=== PATIENT | female | born 1930 | race Caucasian/White ===

== ENCOUNTER → 2016-10-16 | Outpatient (CLI) | payer OTHER | LOC: FIMAGING 12:33 | PROVIDERS: ATTEND Nurse Practitioner Family | DX: M11.262 Other chondrocalcinosis, left knee (principal) ==

== ENCOUNTER 2017-06-27 19:44 | Emergency (ER) | payer OTHER ==
[2017-06-27 20:04] VITALS: PULSE 64; RESP 16; TEMP 97.7; O2SAT 98
[2017-06-27 20:06] VITALS: BP 186/103
[2017-06-27] MEDS ORDERED: TETANUS, DIPHTHERIA TOX (7YR+) 0.5 ML INJ IM ONE (20:26)
--- NOTE | 2017-06-27 20:26 | EDPHY ---
H & P Time Seen by Provider: 06/27/17 20:23 HPI/ROS: CHIEF COMPLAINT: Right hand injury HISTORY OF PRESENT ILLNESS: At 4:00 p.m. patient lost her balance and fell hitting her right hand on pine cones. She feels like is having trouble getting the bleeding stopped was also worried about foreign body. REVIEW OF SYSTEMS: No weakness or numbness distally PAST MEDICAL HISTORY: Includes arthritis, hypertension, macular degeneration General Appearance: Alert and conversant, cooperative. Patient has some radial deviation and swelling of the knuckles from her arthritis which is normal. She has a 3 mm puncture wound/laceration on the dorsum of the web space between her middle and ring fingers. Normal distal flexor and extensor function and capillary refill and sensation. Emergency Department course/MDM: Patient had local anesthesia with 0.5% bupivacaine and wound was explored I do not find a foreign body. X-ray and standard wound care. 2054: Hand x-ray personally interpreted as negative, standard wound care and discharge. Wound is nonsuturable and should heal well with secondary intention. Smoking Status: Never smoked Constitutional: Initial Vital Signs Temperature (C) 36.5 C 06/27/17 20:02 Heart Rate 64 06/27/17 20:02 Respiratory Rate 16 06/27/17 20:02 Blood Pressure 186/103 H 06/27/17 20:02 O2 Sat (%) 98 06/27/17 20:02 O2 Delivery Mode Room Air Allergies/Adverse Reactions: Sulfa (Sulfonamide Antibiotics) Allergy (Unknown, Verified 06/27/17 20:02) Home Medications: Medication Instructions Recorded Aspirin 81mg (*) 06/27/17 MDM/Departure - MDM Medications Given: Discontinued Medications Tetanus/Diphtheria Toxoids Adsorbed (Tetanus-Diphtheria Grifols) 0.5 ml IM .ONCE ONE Stop: 06/27/17 20:27 Last Admin: 06/27/17 20:53 Dose: 0.5 ml - Depart Disposition: Home, Routine, Self-Care Clinical Impression: Hand laceration Qualifiers: Encounter type: initial encounter Foreign body presence: without foreign body Laterality: right Qualified Code(s): S61.411A - Laceration without foreign body of right hand, initial encounter Condition: Good Instructions: Acute Wounds (ED) Referrals: Jim Ireland MD [Primary Care Provider] - As per Instructions
== END 2017-06-27 21:12 | disposition home or self-care (01) ==
DX: S61.411A Laceration without foreign body of right hand, initial encounter (principal); Z23 Encounter for immunization; W45.8XXA Other foreign body or object entering through skin, initial encounter

== ENCOUNTER 2017-07-03 09:17 | Inpatient (IN) | payer OTHER ==
[2017-07-03] MEDS ORDERED: NS 500 ML IV ONE (09:27)
--- NOTE | 2017-07-03 09:27 | EDPHY ---
H & P HPI/ROS: CHIEF COMPLAINT: Altered mental status HISTORY OF PRESENT ILLNESS: The patient is an 82-year-old female who presents to the emergency department with mild change in mental status. EMS was called by the patient's neighbor. Per report, the patient fell last week injuring her right hand. She was seen in the emergency department and discharged home. Today the neighbor noted the hand is slightly more red than normal. Patient also seems mildly confused. Per EMS the patient was answering questions appropriately. Her glucose was normal. The patient denies any complaints except for right hand pain. Her hand pain is moderate. It is worse to touch. She has no chest pain or shortness of breath. No abdominal pain, nausea, vomiting or diarrhea. No headache. No weakness or numbness. No dysuria or frequency. No fevers or chills. EMS also reports the patient has not eaten for 48 hr. The patient states that she has not had an appetite. She has not checked her glucose at home. REVIEW OF SYSTEMS: My complete review of systems is negative except as mentioned in the HPI. Past Medical/Surgical History: Includes urinary tract infection, hypertension, goiter, osteoarthritis, osteoporosis, pyelonephritis Social history: Patient lives at home alone. Smoking Status: Never smoked Physical Exam: Vitals noted GENERAL: No acute distress, alert. HEENT: Eyes normal to inspection, normal pharynx, no signs of dehydration. NECK: No thyromegaly, no lymphadenopathy, supple. RESPIRATORY: Clear to auscultation bilaterally, no rales, rhonchi or wheezing. CVS: Regular rate and rhythm, no rubs, murmurs, or gallops. ABDOMEN: Soft, nontender, nondistended, no organomegaly. BACK: Normal to inspection, no CVA tenderness. SKIN: Normal color, no rash, warm, dry. No pallor. EXTREMITIES: No pedal edema, no calf tenderness, no Homans sign or cords, no joint swelling. The patient's right hand is mildly swollen. There is mild erythema over the dorsal aspect of her hand under the 3rd digit. There is no streaking up the arm. No significant swelling of the fingers. Neurovascular intact distally. NEURO/PSYCH: Alert and oriented x3, normal mood and affect, normal motor sensory exam. No obvious cranial nerve deficit. Constitutional: Initial Vital Signs Temperature (C) 37.2 C 07/03/17 09:25 Heart Rate 85 07/03/17 09:25 Respiratory Rate 18 07/03/17 09:25 O2 Sat (%) 94 07/03/17 09:25 O2 Delivery Mode Room Air Allergies/Adverse Reactions: Sulfa (Sulfonamide Antibiotics) Allergy (Unknown, Verified 06/27/17 20:02) morphine Allergy (Verified 07/03/17 11:11) Hallucinations Home Medications: Medication Instructions Recorded Aspirin [Aspirin 81mg (*)] 81 mg PO DAILY 07/03/17 Cholecalciferol Vit D3 [Vitamin D3 2,000 units PO EVERY OTHER DAY 07/03/17 (*)] traMADol [Ultram 50 mg (*)] 50 mg PO Q6H PRN 07/03/17 Medical Decision Making - Diagnostics Imaging Results: Imaging Impressions Hand X-Ray 07/03/17 09:29 Impression: Persistent soft tissue swelling. No evidence for osteomyelitis. ED Course/Re-evaluation: In the emergency department I reviewed the patient's previous medical record. A repeat x-ray of the right hand was ordered due to the swelling. Laboratory studies were ordered. The patient seems answer my questions appropriately. However, based on the report by the paramedics the patient's neighbor did not feel she was at her baseline. EKG shows normal sinus rhythm, [normal rate, normal axis, normal intervals]. LVH. There are [no ST or T-wave abnormalities]. The patient's troponin was minimally elevated at 0.078. Patient's creatinine was 1.2. Rest of her CBC was unremarkable. I am awaiting urine results. There was suggestion that the patient could be suffering from a urinary tract infection by EMS in the care provider. Because of the patient's redness in her hand and stable above, the patient was given Rocephin 1 g IV. I discussed the case with the hospitalist service. The patient will be admitted for further observation and rule out. The patient had positive white cells in her urine. Rocephin will cover for possible UTI. Differential Diagnosis: My differential includes but is not limited to urinary tract infection, pyelonephritis, electrolyte abnormality, sugar abnormality, bacteremia, sepsis, cellulitis, hand infection, abscess, foreign body, fracture, ACS - Data Points Laboratory Results: Laboratory Results 07/03/17 09:20 07/03/17 09:20 07/03/17 07/03/1707/03/17 09:55 09:20 09:20 WBC RBC Hgb Hct MCV MCH MCHC RDW Plt Count MPV Neut % (Auto) Lymph % (Auto) [place] % (Auto) Eos % (Auto) Baso % (Auto) Nucleat RBC Rel Count Absolute Neuts (auto) Absolute Lymphs (auto) Absolute Monos (auto) Absolute Eos (auto) Absolute Basos (auto) Absolute Nucleated RBC Immature Gran % Immature Gran # PT 14.7 SEC SEC (12.0-15.0) INR 1.13 (0.83-1.16) APTT 28.6 SEC SEC (23.0-38.0) VBG Lactic Acid 1.4 mmol/L mmol/L (0.7-2.1) Sodium Potassium Chloride Carbon Dioxide Anion Gap BUN Creatinine Estimated GFR Glucose Calcium Magnesium 2.1 mg/dL mg/dL (1.6-2.3) Total Bilirubin Conjugated Bilirubin Unconjugated Bilirubin AST ALT Alkaline Phosphatase Troponin I Total Protein Albumin 07/03/17 07/03/17 09:20 09:20 WBC 10.97 10^3/uL H 10^3/uL (3.80-9.50) RBC 4.85 10^6/uL 10^6/uL (4.18-5.33) Hgb 15.9 g/dL g/dL (12.6-16.3) Hct 47.3 % H % (38.0-47.0) MCV 97.5 fL fL (81.5-99.8) MCH 32.8 pg pg (27.9-34.1) MCHC 33.6 g/dL g/dL (32.4-36.7) RDW 13.2 % % (11.5-15.2) Plt Count 171 10^3/uL 10^3/uL (150-400) MPV 11.9 fL H fL (8.7-11.7) Neut % (Auto) 78.4 % H % (39.3-74.2) Lymph % (Auto) 9.3 % L % (15.0-45.0) [place] % (Auto) 11.4 % % (4.5-13.0) Eos % (Auto) 0.1 % L % (0.6-7.6) Baso % (Auto) 0.4 % % (0.3-1.7) Nucleat RBC Rel Count 0.0 % % (0.0-0.2) Absolute Neuts (auto) 8.61 10^3/uL H 10^3/uL (1.70-6.50) Absolute Lymphs (auto) 1.02 10^3/uL 10^3/uL (1.00-3.00) Absolute Monos (auto) 1.25 10^3/uL H 10^3/uL (0.30-0.80) Absolute Eos (auto) 0.01 10^3/uL L 10^3/uL (0.03-0.40) Absolute Basos (auto) 0.04 10^3/uL 10^3/uL (0.02-0.10) Absolute Nucleated RBC 0.00 10^3/uL 10^3/uL (0-0.01) Immature Gran % 0.4 % % (0.0-1.1) Immature Gran # 0.04 10^3/uL 10^3/uL (0.00-0.10) PT INR APTT VBG Lactic Acid Sodium 143 mEq/L mEq/L (134-144) Potassium 3.9 mEq/L mEq/L (3.5-5.2) Chloride 104 mEq/L mEq/L (97-110) Carbon Dioxide 21 mEq/l L mEq/l (22-31) Anion Gap 18 mEq/L H mEq/L (8-16) BUN 27 mg/dL H mg/dL (7-23) Creatinine 1.2 mg/dL H mg/dL (0.6-1.0) Estimated GFR 42 Glucose 104 mg/dL H mg/dL (70-100) Calcium 10.5 mg/dL H mg/dL (8.5-10.4) Magnesium Total Bilirubin 0.8 mg/dL mg/dL (0.1-1.4) Conjugated Bilirubin 0.2 mg/dL mg/dL (0.0-0.5) Unconjugated Bilirubin 0.6 mg/dL mg/dL (0.0-1.1) AST 26 IU/L IU/L (14-46) ALT 27 IU/L IU/L (9-52) Alkaline Phosphatase 99 IU/L IU/L (38-126) Troponin I 0.078 ng/mL H ng/mL (0.000-0.034) Total Protein 6.7 g/dL g/dL (6.3-8.2) Albumin 3.9 g/dL g/dL (3.5-5.0) Medications Given: Discontinued Medications Sodium Chloride (Ns) 500 mls @ 0 mls/hr IV EDNOW ONE; Wide Open PRN Reason: Protocol Stop: 07/03/17 09:28 Last Admin: 07/03/17 09:59 Dose: 500 mls Ceftriaxone Sodium/Dextrose (Rocephin 1 Gm (Premix)) 50 mls @ 100 mls/hr IV EDNOW ONE PRN Reason: Protocol Stop: 07/03/17 10:36 Last Admin: 07/03/17 11:05 Dose: 50 mls Departure - Departure Disposition: [facility] Inpatient Acute Clinical Impression: Right hand pain, Elevated troponin Urinary tract infection Qualifiers: Urinary tract infection type: acute cystitis Hematuria presence: without hematuria Qualified Code(s): N30.00 - Acute cystitis without hematuria Condition: Good
[2017-07-03 09:34] LABS: % IMMATURE GRANULYOCYTES 0.4 % (0.0-1.1); ABSOLUTE IMMATURE GRANULOCYTES 0.04 10^3/uL (0.00-0.10); ADD DIFF? NO; ADD MORPH? NO; ADD SCAN? NO; ATYPICAL LYMPHOCYTE FLAG 10 (0-99); FRAGMENT RBC FLAG 0 (0-99); HEMATOCRIT 47.3 % (38.0-47.0); HEMOGLOBIN 15.9 g/dL (12.6-16.3); LEFT SHIFT FLG 10 (0-99); LIPEMIA HEMOLYSIS FLAG 80 (0-99); MEAN CELL HEMOGLOBIN 32.8 pg (27.9-34.1); MEAN CELL HEMOGLOBIN CONCENTR. 33.6 g/dL (32.4-36.7); MEAN CELL VOLUME 97.5 fL (81.5-99.8); MEAN PLATELET VOLUME 11.9 fL (8.7-11.7); PLATELET CLUMPS FLAG 0 (0-99); PLATELET COUNT 171 10^3/uL (150-400); RED BLOOD CELL COUNT 4.85 10^6/uL (4.18-5.33); RED CELL DISTRIBUTION WIDTH 13.2 % (11.5-15.2)
[2017-07-03 09:48] LABS: INR 1.13 (0.83-1.16); PROTIME(PATIENT) 14.7 SEC (12.0-15.0)
[2017-07-03 09:49] LABS: APTT 28.6 SEC (23.0-38.0)
[2017-07-03 09:50] LABS: ALANINE AMINOTRANSFERASE 27 IU/L (9-52); ALBUMIN 3.9 g/dL (3.5-5.0); ALKALINE PHOSPHATASE 99 IU/L (38-126); ANION GAP 18 mEq/L (8-16); ASPARTATE AMINOTRANSFERASE 26 IU/L (14-46); BILIRUBIN,TOTAL 0.8 mg/dL (0.1-1.4); BILIRUBIN-CONJUGATED 0.2 mg/dL (0.0-0.5); BILIRUBIN-UNCONJUGATED 0.6 mg/dL (0.0-1.1); CALCIUM 10.5 mg/dL (8.5-10.4); CARBON DIOXIDE 21 mEq/l (22-31); CHLORIDE 104 mEq/L (97-110); CREATININE 1.2 mg/dL (0.6-1.0); GLOMERULAR FILTRATION RATE 42; GLUCOSE 104 mg/dL (70-100); POTASSIUM 3.9 mEq/L (3.5-5.2); SODIUM 143 mEq/L (134-144); TOTAL PROTEIN 6.7 g/dL (6.3-8.2)
[2017-07-03 10:00] LABS: TROPONIN I 0.078 ng/mL (0.000-0.034)
--- NOTE | 2017-07-03 10:00 | CPEKG ---
Heart Rate: 73 RR Interval: 822 P-R Interval: 164 QRSD Interval: 88 QT Interval: 396 QTC Interval: 437 P Krebs: 27 QRS Krebs: -27 T Wave Krebs: -10 EKG Severity - ABNORMAL ECG - EKG Impression: SINUS RHYTHM EKG Impression: LEFT VENTRICULAR HYPERTROPHY EKG Impression: BORDERLINE T ABNORMALITIES, INFERIOR LEADS EKG Impression: LEFTWARD AXIS Electronically Signed By: Brendon Stephens 04-Jul-2017 20:48:21
[2017-07-03] MEDS ORDERED: ONDANSETRON DISINTEGRATING 4 MG TAB PO PRN (11:02)
[2017-07-03] MEDS ORDERED: ONDANSETRON 4 MG/2 ML VIAL IVP PRN (11:02)
[2017-07-03] MEDS ORDERED: ACETAMINOPHEN 325 MG TAB PO PRN (11:02)
[2017-07-03 11:04] LABS: COLOR YELLOW; LEUKOCYTE ESTERASE,URINE 1+ (NEGATIVE); NITRITE,URINE NEGATIVE (NEGATIVE)
[2017-07-03] MEDS ORDERED: NS 1,000 ML IV SCH (11:15)
[2017-07-03 11:21] LABS: MUCUS TRACE /lpf (NONE-1+); WBC,URINE 25-50 /hpf (0-3); YEAST PRESENT /hpf (NONE SEEN)
[2017-07-03 11:22] LABS: RBC,URINE NONE SEEN /hpf (0-3)
--- NOTE | 2017-07-03 13:43 | PDGENHP ---
History and Physical - Chief Complaint malaise, fatigue - History of Present Illness The patient is an 82-year-old female who had a right hand laceration recently which was repaired. Over the past day or so she has noticed swelling, redness, and has felt malaise. Her neighbor today found her confused [facility] Right Hand XR was personally reviewed and c/w soft tissue swelling. NO e/o OM EKG personally reviewed showed LVH and inverted Twaves in leads II and III Trop was at an indeterminate level She denies any fever, CP, or SOB. BP is appropriate. She also c/o of frequent urination. No dysuria Past Medical/Surgical History: urinary tract infection, hypertension, goiter, osteoarthritis, osteoporosis, pyelonephritis, right hand laceraton Social history: Patient lives at home alone. occasional ETOH. no tobacco. no illicits FMhx: NC Labs: Cr is 1.2 WBC is 11 History Information - Allergies/Home Medication List Allergies/Adverse Reactions: Sulfa (Sulfonamide Antibiotics) Allergy (Unknown, Verified 06/27/17 20:02) morphine Allergy (Verified 07/03/17 11:11) Hallucinations Home Medications: Aspirin [Aspirin 81mg (*)] 81 mg PO DAILY 07/03/17 [Last Taken 07/02/17] Cholecalciferol Vit D3 [Vitamin D3 (*)] 2,000 units PO EVERY OTHER DAY 07/03/17 [Last Taken 06/29/17] traMADol [Ultram 50 mg (*)] 50 mg PO Q6H PRN 07/03/17 [Last Taken 07/02/17] I have personally reviewed and updated: medical history, social history, surgical history - Social History Smoking Status: Never smoked Review of Systems Review of Systems: ROS: 10pt was reviewed & negative except for what was stated in HPI & below Physical Exam Physical Exam: Temp Pulse Resp BP Pulse Ox 37.2 C 76 20 182/83 H 91 L 07/03/17 09:25 07/03/17 13:17 07/03/17 13:17 07/03/17 13:17 07/03/17 13:17 Constitutional: no apparent distress Eyes: PERRL, EOMI Ears, Nose, Mouth, Throat: moist mucous membranes, hearing normal Cardiovascular: regular rate and rhythym, No JVD, No edema Respiratory: no respiratory distress, no rales or rhonchi, clear to auscultation Gastrointestinal: normoactive bowel sounds, soft, non-tender abdomen Genitourinary: no bladder fullness Skin: warm Neurologic: AAOx3 Psychiatric: interacting appropriately, not anxious, not encephalopathic, thought process linear Lymph, Heme, Immunologic: No petechiae Lab Data & Imaging Review 07/03/17 09:20 07/03/17 09:20 WBC 10.97 10^3/uL (3.80-9.50) H 07/03/17 09:20 RBC 4.85 10^6/uL (4.18-5.33) 07/03/17 09:20 Hgb 15.9 g/dL (12.6-16.3) 07/03/17 09:20 Hct 47.3 % (38.0-47.0) H 07/03/17 09:20 MCV 97.5 fL (81.5-99.8) 07/03/17 09:20 MCH 32.8 pg (27.9-34.1) 07/03/17 09:20 MCHC 33.6 g/dL (32.4-36.7) 07/03/17 09:20 RDW 13.2 % (11.5-15.2) 07/03/17 09:20 Plt Count 171 10^3/uL (150-400) 07/03/17 09:20 MPV 11.9 fL (8.7-11.7) H 07/03/17 09:20 Neut % (Auto) 78.4 % (39.3-74.2) H 07/03/17 09:20 Lymph % (Auto) 9.3 % (15.0-45.0) L 07/03/17 09:20 [place] % (Auto) 11.4 % (4.5-13.0) 07/03/17 09:20 Eos % (Auto) 0.1 % (0.6-7.6) L 07/03/17 09:20 Baso % (Auto) 0.4 % (0.3-1.7) 07/03/17 09:20 Nucleat RBC Rel Count 0.0 % (0.0-0.2) 07/03/17 09:20 Absolute Neuts (auto) 8.61 10^3/uL (1.70-6.50) H 07/03/17 09:20 Absolute Lymphs (auto) 1.02 10^3/uL (1.00-3.00) 07/03/17 09:20 Absolute Monos (auto) 1.25 10^3/uL (0.30-0.80) H 07/03/17 09:20 Absolute Eos (auto) 0.01 10^3/uL (0.03-0.40) L 07/03/17 09:20 Absolute Basos (auto) 0.04 10^3/uL (0.02-0.10) 07/03/17 09:20 Absolute Nucleated RBC 0.00 10^3/uL (0-0.01) 07/03/17 09:20 Immature Gran % 0.4 % (0.0-1.1) 07/03/17 09:20 Immature Gran # 0.04 10^3/uL (0.00-0.10) 07/03/17 09:20 PT 14.7 SEC (12.0-15.0) 07/03/17 09:20 INR 1.13 (0.83-1.16) 07/03/17 09:20 APTT 28.6 SEC (23.0-38.0) 07/03/17 09:20 VBG Lactic Acid 1.4 mmol/L (0.7-2.1) 07/03/17 09:55 Sodium 143 mEq/L (134-144) 07/03/17 09:20 Potassium 3.9 mEq/L (3.5-5.2) 07/03/17 09:20 Chloride 104 mEq/L (97-110) 07/03/17 09:20 Carbon Dioxide 21 mEq/l (22-31) L 07/03/17 09:20 Anion Gap 18 mEq/L (8-16) H 07/03/17 09:20 BUN 27 mg/dL (7-23) H 07/03/17 09:20 Creatinine 1.2 mg/dL (0.6-1.0) H 07/03/17 09:20 Estimated GFR 42 07/03/17 09:20 Glucose 104 mg/dL (70-100) H 07/03/17 09:20 Calcium 10.5 mg/dL (8.5-10.4) H 07/03/17 09:20 Magnesium 2.1 mg/dL (1.6-2.3) 07/03/17 09:20 Total Bilirubin 0.8 mg/dL (0.1-1.4) 07/03/17 09:20 Conjugated Bilirubin 0.2 mg/dL (0.0-0.5) 07/03/17 09:20 Unconjugated Bilirubin 0.6 mg/dL (0.0-1.1) 07/03/17 09:20 AST 26 IU/L (14-46) 07/03/17 09:20 ALT 27 IU/L (9-52) 07/03/17 09:20 Alkaline Phosphatase 99 IU/L (38-126) 07/03/17 09:20 Troponin I 0.078 ng/mL (0.000-0.034) H 07/03/17 09:20 Total Protein 6.7 g/dL (6.3-8.2) 07/03/17 09:20 Albumin 3.9 g/dL (3.5-5.0) 07/03/17 09:20 Urine Color YELLOW 07/03/17 10:51 Urine Appearance HAZY 07/03/17 10:51 Urine pH 5.0 (5.0-7.5) 07/03/17 10:51 Ur Specific Lopez 1.017 (1.002-1.030) 07/03/17 10:51 Urine Protein NEGATIVE (NEGATIVE) 07/03/17 10:51 Urine Ketones 1+ (NEGATIVE) H 07/03/17 10:51 Urine Blood NEGATIVE (NEGATIVE) 07/03/17 10:51 Urine Nitrate NEGATIVE (NEGATIVE) 07/03/17 10:51 Urine Bilirubin NEGATIVE (NEGATIVE) 07/03/17 10:51 Urine Urobilinogen NEGATIVE EU (0.2-1.0) 07/03/17 10:51 Ur Leukocyte Esterase 1+ (NEGATIVE) H 07/03/17 10:51 Urine RBC NONE SEEN /hpf (0-3) 07/03/17 10:51 Urine WBC 25-50 /hpf (0-3) H 07/03/17 10:51 Ur Epithelial Cells TRACE /lpf (NONE-1+) 07/03/17 10:51 Urine Mucus TRACE /lpf (NONE-1+) 07/03/17 10:51 Urine Yeast PRESENT /hpf (NONE SEEN) 07/03/17 10:51 Urine Glucose NEGATIVE (NEGATIVE) 07/03/17 10:51 Assessment & Plan Assessment: #Right hand cellulitis #ISABELLA #Dehydration #HTN, not medicated at home #Acute Encephalopathy, resolved #Indeterminate troponin, no chest pain #Acute Cystitis #Weakness and deconditioning Plan: -Admit observation -IVF -Rocephin -serial trops, EKG, TTE -IVF -PT/OT -Hydralazine PRN -DNR (confirmed today by me)
--- NOTE | 2017-07-03 14:18 | ECHO ---
[email or web address] [address] Main: [phone] Fax: Transthoracic Echocardiogram Name: MERYL AUCNA MR#: [id number] Study Date: 07/03/2017 Study Time: 12:02 PM Date of : 1930 Age: 87 year(s) Height: 165.1 cm (65 in.) Weight: 61.24 kg (135 lb.) BSA: 1.67 m2 Gender: Female Examination: Echo Indication: Indeterminate troponin Image Quality: Contrast: Requested by: Luis Smith BP: 184 mmHg/87 mmHg Heart Rate: Rhythm: Indication: Indeterminate troponin Procedure Staff Hand Alterations Seamstress: Tabitha Schuler Reading Physician: Ad Valencia Requesting Provider: Conclusions: Normal size left ventricle. Normal global systolic LV function. The ejection fraction is estimated to be 65-70 %. No regional wall motion abnormality. Diastolic dysfunction is indeterminate.. Normal size right ventricle. The left atrium is normal in size. The right atrium is normal in size. Moderate calcification of the posterior mitral annulus.. The aortic valve is normal in appearance and function. AV max PG is 21mmHG. AV mean PG is 11mmHG.. The tricuspid valve is normal in appearance and function. The pulmonic valve is normal in appearance and function. Measurements: Chambers Valvular Assessment AV/MV Valvular Assessment TV/PV Normal Normal Normal Name Value Range Name Value Range Name Value Range Ao Dana (MM): 3.2 cm (2.2 cm-3.7 AV Vmax: 2.24 m/s (1 m/s-1.7 cm) m/s) IVSd (2D): 1.0 cm (0.6 cm-1.1 AV maxP mmHg ( - ) cm) AV meanP mmHg ( - ) LVDd (2D): 4.5 cm (3.9 cm-5.3 LVOT Vmax: 1.35 m/s (0.7 m/s-1.1 cm) m/s) LVPWd (2D): 0.8 cm ( - ) THOMAS (Vmax): 1.7 cm2 ( - ) LVOTd 1.9 cm 1.9 cm mm THOMAS (VTI): 2.1 cm ( - ) EF Range: 65-70 % MV E Vmax: 0.84 m/s ( - ) MV A Vmax: 0.96 m/s ( - ) MV E/A: 0.88 ( - ) Patient: MERYL ACUNA Study Date: 07/03/2017 Page 1 of 2 12:02 PM Continued Measurements: Chambers Valvular Assessment AV/MV Name Value Name Value LADs: 3.8 cm MV E/E' Septal: 20.60 LADs Lon.8 cm MV E/E' Lateral: 17.60 LA Area: 19.1 cm2 Findings: Left Ventricle: Normal size left ventricle. Normal global systolic LV function. The ejection fraction is estimated to be 65-70 %. No regional wall motion abnormality. Diastolic dysfunction is indeterminate.. Right Ventricle: Normal size right ventricle. Left Atrium: The left atrium is normal in size. Right Atrium: The right atrium is normal in size. Mitral Valve: Moderate calcification of the posterior mitral annulus.. Aortic Valve: The aortic valve is normal in appearance and function. AV max PG is 21mmHG. AV mean PG is 11mmHG.. Tricuspid Valve: The tricuspid valve is normal in appearance and function. Pulmonic Valve: The pulmonic valve is normal in appearance and function. Trivial pulmonic valve regurgitation. Aorta: The aorta is normal. Pericardium: No pericardial effusion. There is pericardial fat. (No Signature Object) Patient: MERYL ACUNA Study Date: 07/03/2017 Page 2 of 2 12:02 PM [id number]
[2017-07-03] MEDS: traMADol 50 MG TAB PO PRN (17:15)
--- NOTE | 2017-07-03 18:33 | SOAPPROG ---
SOAP Progress Note Assessment/Plan: Assessment:Hand cellulitis Plan:IV Abx, Elevation. If no imporvement in 36 hours in IV abx will get MRI to eval for abscess. 07/03/17 18:32 Subjective: Reviewed case and consultation note dictated by Tressa LIMA. Objective: Vital Signs Temp Pulse Resp BP Pulse Ox 36.4 C 76 21 H 147/78 H 90 L 07/03/17 16:00 07/03/17 16:00 07/03/17 16:00 07/03/17 16:00 07/03/17 16:00 07/02/17 07/03/17 07/04/17 05:59 05:59 05:59 Intake Total 350 Balance 350 PT 14.7 SEC (12.0-15.0) 07/03/17 09:20 INR 1.13 (0.83-1.16) 07/03/17 09:20 Markedly swollen right hand with preserved digital motion c/w cellulitis. ICD10 Worksheet Patient Problems: Problems Problem Status Onset Elevated troponin Acute Right hand pain Acute Urinary tract infection Acute
--- NOTE | 2017-07-03 21:41 | GCON ---
[f rep st] CONSULTATION CHIEF COMPLAINT: Right hand pain, swelling, and redness. HISTORY OF PRESENT ILLNESS: The patient is an 87-year-old right-hand dominant female who presents to the emergency room today with right hand swelling, pain, and redness. She states that last week, she fell, injuring her right hand, getting a small laceration between the middle and ring fingers at the metacarpophalangeal joint. She was seen at the ER and discharged home. She states that over the last couple days, she has noticed increased swelling and pain in the hand. She does report that the hand was more painful and swollen yesterday. She denies any fever or chills. She denies any nausea, vomiting, headache, or diarrhea. She denies any other orthopedic complaints. PAST MEDICAL HISTORY: Hypertension, goiter, osteoarthritis, osteoporosis, pyelonephritis, urinary tract infection. PAST SURGICAL HISTORY: None. MEDICATIONS: Aspirin, vitamin D3, tramadol. ALLERGIES: Sulfa and morphine. FAMILY HISTORY: Noncontributory. REVIEW OF SYSTEMS: 10-point review of systems negative for any other history, complaints, or concerns. PHYSICAL EXAMINATION: GENERAL: Pleasant, NAD. HEENT: NC/AT, EOMI, PERRLA. Ears and nares patent without discharge. Oropharynx clear. NECK: Nontender to palpation, full range of motion. MUSCULOSKELETAL: Right hand, there is swelling and redness throughout the dorsum of her right hand extending into her forearm. There is tenderness to palpation over the dorsum of her hand. She has normal sensation to light touch in the right upper extremity. She is able to move all 5 fingers, which does cause discomfort. Distal pulse present in the right upper extremity. SKIN: Warm, dry, and intact. NEUROLOGIC: Nonfocal. No deficits noted. PSYCHIATRIC: Alert and oriented x3. Appropriate mood and affect. RADIOGRAPHS: X-rays of the right hand were taken and reviewed and show persistent soft tissue swelling. No evidence of osteomyelitis or fracture. IMPRESSION: Right hand cellulitis. PLAN: The patient was seen and examined and reviewed with Dr. Montanez. At this time, we will continue with conservative treatment, including IV antibiotics per the hospitalist. She should continue with rest, ice, and elevation. Activities to her tolerance. If her symptoms are not improved in 36 hours, then we will consider ordering MRI of the right hand. All questions were answered to the patient's satisfaction. /[id number]/MODL MTDD
[2017-07-03] MEDS: hydrALAZINE 20 MG/ML VIAL IVP PRN (22:53)
[2017-07-04 04:14] LABS: % IMMATURE GRANULYOCYTES 0.3 % (0.0-1.1); ABSOLUTE IMMATURE GRANULOCYTES 0.03 10^3/uL (0.00-0.10); ADD DIFF? NO; ADD MORPH? NO; ADD SCAN? NO; ATYPICAL LYMPHOCYTE FLAG 10 (0-99); FRAGMENT RBC FLAG 0 (0-99); HEMATOCRIT 37.2 % (38.0-47.0); HEMOGLOBIN 12.5 g/dL (12.6-16.3); LEFT SHIFT FLG 0 (0-99); LIPEMIA HEMOLYSIS FLAG 80 (0-99); MEAN CELL HEMOGLOBIN 32.4 pg (27.9-34.1); MEAN CELL HEMOGLOBIN CONCENTR. 33.6 g/dL (32.4-36.7); MEAN CELL VOLUME 96.4 fL (81.5-99.8); MEAN PLATELET VOLUME 12.2 fL (8.7-11.7); PLATELET CLUMPS FLAG 0 (0-99); PLATELET COUNT 148 10^3/uL (150-400); RED BLOOD CELL COUNT 3.86 10^6/uL (4.18-5.33); RED CELL DISTRIBUTION WIDTH 13.3 % (11.5-15.2)
[2017-07-04 04:31] LABS: ANION GAP 8 mEq/L (8-16); CALCIUM 9.4 mg/dL (8.5-10.4); CARBON DIOXIDE 21 mEq/l (22-31); CHLORIDE 110 mEq/L (97-110); GLOMERULAR FILTRATION RATE 52; GLUCOSE 100 mg/dL (70-100); POTASSIUM 3.9 mEq/L (3.5-5.2); SODIUM 139 mEq/L (134-144)
[2017-07-04 04:50] LABS: C-REACTIVE PROTEIN 149.9 mg/L (<10.0)
[2017-07-04] MEDS: hydrALAZINE 20 MG/ML VIAL IVP PRN (05:57)
--- NOTE | 2017-07-04 06:52 | SOAPPROG ---
SOAP Progress Note Assessment/Plan: Assessment/Plan: R hand cellulitis -Cont activities as tolerated -Cont IV abx as ordered, blood cultures resulted, + strep pneumo, consider ID consult -Cont current pain management -Encourage ice/elevation of RUE -If no improvement in 24hrs, will order MRI for eval of abscess 07/04/17 06:50 Subjective: Pt seen at bedside. She notes that she is tired, and that her hand is slightly more painful that yesterday, but notes "it isn't that bad, I can tolerate it" in regards to the pain. She states that she is unsure if the redness in her hand is improving, but feels like "it might be." She denies any monterroso, cp, f/c/n/v , abd pain, post calf pain or new onset n/t. She also denies any additional joint pain at this time. We have discussed the care plan today. The pt has no additional concerns or complaints at this time. Objective: Vital Signs Temp Pulse Resp BP Pulse Ox 36.8 C 70 17 173/77 H 92 07/04/17 04:00 07/04/17 04:00 07/04/17 04:00 07/04/17 04:00 07/04/17 04:00 Laboratory Results 07/04/17 03:18 07/04/17 03:18 07/03/17 07/04/17 07/05/17 05:59 05:59 05:59 Intake Total 550 Balance 550 PT 14.7 SEC (12.0-15.0) 07/03/17 09:20 INR 1.13 (0.83-1.16) 07/03/17 09:20 Pt seen at bedside, awoken for exam. VSS, afebrile. NAD. Exam of the RUE reveals swelling and erythema on the dorsum of the hand, extending into the fingers, and proximally just past the wrist. Forearm compartments are supple. Pt has intact motion of all 5 digits. Mild calor is noted over dorsum of the hand (possibly improved since yesterday based on review of note). Elbow exam in benign. Pt is intact to light touch sensation distally. Radial and ulnar pulses are intact. Exam of the BLE reveals intact SCDs. Post calves are NTTP, no palpable vascular cords, neg Vince's bilat. Pt moves legs well. DNVI BLE. ICD10 Worksheet Patient Problems: Problems Problem Status Onset Elevated troponin Acute Right hand pain Acute Urinary tract infection Acute
[2017-07-04] MEDS: traMADol 50 MG TAB PO PRN (07:10)
--- NOTE | 2017-07-04 08:58 | CPEKG ---
Heart Rate: 72 RR Interval: 833 P-R Interval: 156 QRSD Interval: 90 QT Interval: 312 QTC Interval: 342 P Clarinda: 40 QRS Clarinda: -20 T Wave Clarinda: 138 EKG Severity - ABNORMAL ECG - EKG Impression: SINUS RHYTHM EKG Impression: VENTRICULAR TRIGEMINY EKG Impression: BORDERLINE LEFT AXIS DEVIATION EKG Impression: NONSPECIFIC T ABNORMALITIES, ANT-LAT LEADS Electronically Signed By: Brendon Stephens 04-Jul-2017 20:46:40
[2017-07-04] MEDS: ASPIRIN 81 MG CHEWABLE TAB PO SCH (09:49)
--- NOTE | 2017-07-04 14:35 | HOSPPROG ---
Hospitalist Progress Note Assessment/Plan: 87 yo female with right hand cellulitis -clinically improving -BCX: Strep Pneumo -CRP improving -TTE preserved LVEF, no wall abnormalities #Right hand cellulitis #Strep Bacteremia #ISABELLA, resolved with IVF #Dehydration, resolved #HTN, not medicated at home #Acute Encephalopathy, resolved #Indeterminate troponin, no chest pain, possibly demand ischemia, trop trending down #Acute Cystitis #Weakness and deconditioning Plan: -change to inpatient -stop IVF -Cont Rocephin. Wait for sensitivities -repeat trop -appreciate Hand surgery. Hand cellulitis appears improving. -PT/OT -start low dose BB -DNR Change to inpatient Subjective: Feels better. Afebrile. NO CP, SOB, palpitatons, leg swelling. Right hand swelling and erythema are improving. isolated tachycardia x 1, no e/ o Afib. now back to target. Objective: Vital Signs Temp Pulse Resp BP Pulse Ox 37.7 C 80 18 125/78 H 92 07/04/17 11:00 07/04/17 11:29 07/04/17 11:00 07/04/17 11:00 07/04/17 11:00 PT 14.7 SEC (12.0-15.0) 07/03/17 09:20 INR 1.13 (0.83-1.16) 07/03/17 09:20 - Physical Exam Constitutional: no apparent distress Eyes: PERRL, EOMI Ears, Nose, Mouth, Throat: moist mucous membranes Cardiovascular: regular rate and rhythym, No JVD, No edema Respiratory: no respiratory distress, no rales or rhonchi, clear to auscultation Gastrointestinal: normoactive bowel sounds, soft, non-tender abdomen Skin: warm, other (right hand swelling at dorsum, +erythema. Can move all digits ) Neurologic: AAOx3 Psychiatric: interacting appropriately, not anxious, not encephalopathic, thought process linear ICD10 Worksheet Patient Problems: Problems Problem Status Onset Elevated troponin Acute Right hand pain Acute Urinary tract infection Acute
--- NOTE | 2017-07-04 15:28 | PDMN ---
Medical Necessity Medical necessity: change to IP; los>2mn for R hand cellulitis r/t recent laceration, strep bacteremia, and indeterminate troponin; for continued IV abx , follow cx's and troponin; comorbid htn, advanced age; per order and progress note 07/04/17
--- NOTE | 2017-07-04 16:48 | ASMTCASEMG ---
Living Arrangements What is your living Answers: Alone arrangement? Who do you live with? Type Of Residence What kind of residence do Answers: House you live in? Discharge Plan Comments Coordination Status Comments Notes: Pt is a 87 y/o female admitted for elevated trop, confusion and a hand infection. PT is recommending SNF vs 24hr supervision. CM met w/ pt for dispo planning. Pt is unable to identify if she would want SNF or not. CM to follow. Plan: TBD Date Signed: 07/04/2017 04:47 PM Electronically Signed By:MICHELLE Jiménez
[2017-07-04] MEDS ORDERED: VANCOMYCIN 750 MG in D5W 150 ML IV SCH (17:30)
[2017-07-04] MEDS: METOPROLOL TARTRATE 25 MG TAB PO SCH (21:23)
[2017-07-05 03:58] LABS: % IMMATURE GRANULYOCYTES 0.4 % (0.0-1.1); ABSOLUTE IMMATURE GRANULOCYTES 0.03 10^3/uL (0.00-0.10); ADD DIFF? NO; ADD MORPH? NO; ADD SCAN? NO; ATYPICAL LYMPHOCYTE FLAG 40 (0-99); FRAGMENT RBC FLAG 0 (0-99); HEMATOCRIT 36.7 % (38.0-47.0); HEMOGLOBIN 12.3 g/dL (12.6-16.3); LEFT SHIFT FLG 0 (0-99); LIPEMIA HEMOLYSIS FLAG 80 (0-99); MEAN CELL HEMOGLOBIN 32.4 pg (27.9-34.1); MEAN CELL HEMOGLOBIN CONCENTR. 33.5 g/dL (32.4-36.7); MEAN CELL VOLUME 96.6 fL (81.5-99.8); MEAN PLATELET VOLUME 12.4 fL (8.7-11.7); PLATELET CLUMPS FLAG 10 (0-99); PLATELET COUNT 159 10^3/uL (150-400); RED CELL DISTRIBUTION WIDTH 13.4 % (11.5-15.2)
[2017-07-05 04:30] LABS: ANION GAP 11 mEq/L (8-16); CALCIUM 9.7 mg/dL (8.5-10.4); CARBON DIOXIDE 21 mEq/l (22-31); CHLORIDE 107 mEq/L (97-110); CREATININE 1.1 mg/dL (0.6-1.0); GLOMERULAR FILTRATION RATE 47; GLUCOSE 90 mg/dL (70-100); POTASSIUM 3.9 mEq/L (3.5-5.2); SODIUM 139 mEq/L (134-144)
[2017-07-05 04:42] LABS: C-REACTIVE PROTEIN 141.2 mg/L (<10.0)
[2017-07-05] MEDS: CHOLECALCIFEROL VIT D3 1,000 UNITS TAB PO SCH (09:05)
[2017-07-05] MEDS: ASPIRIN 81 MG CHEWABLE TAB PO SCH (09:06)
[2017-07-05] MEDS: METOPROLOL TARTRATE 25 MG TAB PO SCH (09:06)
--- NOTE | 2017-07-05 09:50 | SOAPPROG ---
SOAP Progress Note Assessment/Plan: Assessment:Hand cellulitis likely due to strep (from blood cultures). I expected a better response from the IV ceftriaxone. Fingers were not painful or tender on and now are. Plan:IV Abx, Elevation. I do not feel the response to IV abx is sufficient for the time interval. I Ordered MRI to eval for hand abscess. 07/03/17 18:32 07/05/17 09:48 Subjective: Feels better and swelling is down Objective: Vital Signs Temp Pulse Resp BP Pulse Ox 36.4 C 60 16 171/63 H 97 07/05/17 07:01 07/05/17 09:06 07/05/17 07:01 07/05/17 09:06 07/05/17 07:01 Laboratory Results 07/05/17 03:18 07/05/17 03:18 07/04/17 07/05/17 07/06/17 05:59 05:59 05:59 Intake Total 750 Balance 750 PT 14.7 SEC (12.0-15.0) 07/03/17 09:20 INR 1.13 (0.83-1.16) 07/03/17 09:20 Still very swollen digits. Hand swelling is reduced. Now tender along flexor tendon sheaths, especially index finger. Erythema is resolving. ICD10 Worksheet Patient Problems: Problems Problem Status Onset Elevated troponin Acute Right hand pain Acute Urinary tract infection Acute
--- NOTE | 2017-07-05 09:59 | GCON ---
[f rep st] CONSULTATION INFECTIOUS DISEASE CONSULT DATE OF CONSULTATION: 07/05/2017 REFERRING PHYSICIAN: Luis Smith MD REASON FOR CONSULTATION: To assist in the management of this 87-year-old female with right hand cellulitis and bacteremia. HISTORY OF PRESENT ILLNESS: The patient is a very pleasant 87-year-old [place] woman whose previous medical history is notable for the followin. History of E coli urinary tract infections. 2. Hypertension. 3. Osteoarthritis. 4. Osteoporosis. 5. History of pyelonephritis. The patient was in her usual state of good health until June 27, when she tells me she tripped over some shopping bags outside of her house. She landed in the dirt and feels that a pine cone punctured her right hand. Because of excessive bleeding, the patient came to [facility] for further evaluation and treatment. She was concerned that there was a part of a pine cone still stuck in her hand. She had an x-ray that was negative, and the wound was explored by Marty Huggins without evidence of foreign body. She was sent home on no antibiotics. The area did not look acutely infected at the time. The patient, over the ensuing days, developed progressive erythema of the right hand, and with mild change in mental status. EMS was called by the patient's neighbor, and she was brought back to [facility]. In the emergency room, her temperature was 37.2, with stable vital signs otherwise. An x-ray of the hand showed persistent soft tissue swelling, but no fracture or other evidence of osteomyelitis. She was given a gram of ceftriaxone and admitted to the hospitalist service for further evaluation and treatment. Of note, the patient's troponin was minimally elevated at 0.078 upon admission. A transthoracic echocardiogram was performed, which showed an ejection fraction of 70%, with no regional wall motion abnormalities. She was found to have moderate calcification of the posterior mitral annulus, with a normal-appearing aortic valve, tricuspid and pulmonic valve. No evidence of endocarditis. She was continued on Rocephin. Blood cultures were obtained on admission. One of those sets done at 9:55 in the morning grew Strep mitis/oralis and Strep salivarius. Another set of blood cultures drawn approximately 1 hour later is growing gram-positive cocci in clusters. I am now asked to assist in her management. Also of note, during this hospitalization, she was evaluated by Dr. Reyes Montanez out of concern for her hand infection. He felt that conservative therapy was prudent and no further imaging was necessary, unless she worsened clinically. Speaking with the patient today, she feels that her hand is much better. She states that it is less red and less swollen. She denies blurred vision, pain in her mouth or teeth, or pain when she bites down, chest pain, shortness of breath, abdominal pain, diarrhea, burning with urination or other. She states that prior to her mechanical fall, she was feeling quite well and eating normally. She has no history of endocarditis. No recent odontogenic infection. She states that she goes to the dentist every few months. PAST MEDICAL HISTORY: Previous medical history is outlined above. ALLERGIES: Sulfa causes a rash, and morphine causes confusion. MEDICATIONS: Presently include vancomycin 1 g IV daily, which she was started on last night; ceftriaxone 1 g IV daily, day 2; vitamin D; hydralazine 5 mg as needed; Lopressor 12.5 mg p.o. b.i.d.; Ultram p.r.n.; baby aspirin 81 mg daily. SOCIAL HISTORY: The patient is originally from [facility] and came to the [facility] in the 1950s. 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 She presently lives in a house with her 50-year-old son, whom she says is not well. She has no pets. No recent travel within or outside of the [place]. No tobacco history. She rarely drinks alcohol. No water exposure or other unusual exposures. FAMILY HISTORY: Noncontributory. REVIEW OF SYSTEMS: As outlined above. Right hand discomfort. Otherwise, 10 systems are reviewed, and all are negative. PHYSICAL EXAM: VITAL SIGNS: T current is 36.4, T-max 37.7, heart rate 60, blood pressure 171/63, 97% on room air. GENERAL: Well-nourished, well- developed, elderly female, lying in bed, nontoxic. HEENT: Atraumatic, normocephalic. Pupils appear surgical in nature bilaterally , with no petechiae, scleral icterus or other, or injection. No discharge from the nares or sinus process tenderness. Mucous membranes are somewhat dry. No oral lesions noted. Dentition in excellent repair. No evidence of odontogenic infection or apical or periapical abscess. Trachea is midline. No supraclavicular, axillary, or cervical lymphadenopathy. CARDIOVASCULAR: S1, S2. Faint systolic ejection murmur heard at the right lower sternal border. LUNGS: Clear to auscultation anterolaterally. ABDOMEN: Obese, soft, no organomegaly or tenderness to palpation. EXTREMITIES: No clubbing, cyanosis, or edema of her lower extremities. Evidence of osteoarthritis in her hands. Right upper extremity is notable for a small puncture wound on the dorsum of her right hand between the 3rd and 4th digits that is healing nicely, without evidence of discharge or drainage. The patient's hand is diffusely swollen, with pinkish erythema, particularly along the dorsum. All of her digits are sausage digits, and she is unable to make a fist. She has very mild erythema on her forearm ventrally that is not in a lymphangitic pattern. The hand is quite tender, but is overall much better, per the patient and nurse. No tingling or numbness or hypesthesia. No bullae. Her strength is intact. SKIN : Otherwise normal, without evidence of rash or stigmata of endocarditis. NEUROLOGIC: She is alert and oriented x3. She is moving all 4 extremities. No sensory or motor deficits. LABORATORY DATA: Microbiologic data as outlined above. White blood cell count of 8.2, down from 10.9 on admission, hematocrit 36, platelet count 159. BUN and creatinine 27/1.1. Liver function tests were within normal limits upon admission, troponin 0.024, down from 0.078 on admission. C-reactive protein of 173 on admission, now going down to 141. Urinalysis with 1+ ketones and 25-50 white blood cells. Radiographic data as outlined above. TTE negative for vegetations. IMPRESSION: 87-year-old female with right hand cellulitis/probable tenosynovitis after sustaining a small puncture wound over a week ago after a mechanical fall. She has concomitant bacteremia with oral tg. The patient denies bringing her hand to her mouth to stop the bleeding after sustaining the wound after falling initially, but states that she used Kleenexes which she had just used to wipe her nose and mouth to clean the wound and stop the bleeding. Of note, clinical suspicion for endocarditis is low; would not pursue ANNA. PLAN: 1. Continue Ceftriaxone 1 g IV daily. 2. Given significant clinical improvement, hold off on MRI for now. Appreciate Dr. Montanez's assistance. 3. She has received a tetanus booster. 4. Await identification of the gram-positive cocci in clusters and discontinue Vancomycin given low suspicion for MRSA. Continue monotherapy with Ceftriaxone. 5. Repeat blood cultures have been ordered. 6. The patient will almost certainly need a custodial facility and is very resistant to this. Will ask Social Work to get involved. Thank you very much for consulting Infectious Diseases. We will continue to follow this patient with you. /[id number]/MODL MTDD
[2017-07-05] MEDS: LISINOPRIL 5 MG TAB PO SCH (14:35)
[2017-07-05] MEDS ORDERED: NS 1,000 ML IV SCH (14:45)
--- NOTE | 2017-07-05 14:45 | HOSPPROG ---
Hospitalist Progress Note Assessment/Plan: 87 yo female with right hand cellulitis and possible tenosynovitis -Hand appears clinically improving -MRI hand pending -BCX: Strep Pneumo + Gram + clusters (ID pending) -CRP improving -TTE preserved LVEF, no wall abnormalities, no endocarditis -Repeat Trop ok #Right hand cellulitis, possible Tenosynovitis #Strep Bacteremia #ISABELLA, resolved with IVF #Dehydration, resolved #HTN, not medicated at home #Acute Encephalopathy, resolved #Indeterminate troponin, no chest pain, possibly demand ischemia, latest troponin ok #Acute Cystitis #Weakness and deconditioning Plan: -cont inpatient -await MRI -Appreciated Hand Surgery's help -Cont Rocephin -ID following. Vanco stopped -as she will receive contrast, I will provided a little more hydration today -Start Low dose Lisinopril -Her HR did not tolerate Metoprolol as it caused Bradycardia, will stop -PT/OT -DNR Subjective: afebrile. MRI pending. Bradycardia. not symptomatic. Still elevated bp. No CP or SOB Objective: Vital Signs Temp Pulse Resp BP Pulse Ox 36.6 C 49 L 20 176/59 H 93 07/05/17 11:38 07/05/17 11:38 07/05/17 11:38 07/05/17 14:35 07/05/17 11:38 Laboratory Results 07/05/17 03:18 07/05/17 03:18 07/04/17 07/05/17 07/06/17 05:59 05:59 05:59 Intake Total 750 Balance 750 PT 14.7 SEC (12.0-15.0) 07/03/17 09:20 INR 1.13 (0.83-1.16) 07/03/17 09:20 - Physical Exam Constitutional: no apparent distress, not in pain Ears, Nose, Mouth, Throat: moist mucous membranes, hearing normal Cardiovascular: regular rate and rhythym, No edema Respiratory: no respiratory distress, no rales or rhonchi, clear to auscultation Gastrointestinal: normoactive bowel sounds, soft, non-tender abdomen Skin: warm Musculoskeletal: other (right hand swelling and erythema) Neurologic: AAOx3 Psychiatric: interacting appropriately, not anxious ICD10 Worksheet Patient Problems: Problems Problem Status Onset Elevated troponin Acute Right hand pain Acute Urinary tract infection Acute
[2017-07-05] MEDS ORDERED: LR 1,000 ML IV SCH (15:30)
--- NOTE | 2017-07-05 15:38 | ASMTCMCOM ---
CM Note CM Note Notes: Spoke with pt and her friend Dmitriy re PT/OT's recommendation for a SNF d/c. Pt resistant. Stated she was at [facility] in the past and didn't like it. Reassured her that she would not have to go back there. Dmitriy requested referrals to be sent and he will continue to encourage her, along with PT/OT, and nursing. Pt will need approx 10 days of IV ABX treatment as well as PT/OT for strengthening. PASRR done. Date Signed: 07/05/2017 03:38 PM Electronically Signed By:MARIAN Minor
[2017-07-05] MEDS ORDERED: GADOBUTROL 10 ML VIAL IVP ONE (16:57)
[2017-07-05] MEDS: hydrALAZINE 20 MG/ML VIAL IVP PRN (17:40)
[2017-07-06 04:07] LABS: % IMMATURE GRANULYOCYTES 0.3 % (0.0-1.1); ABSOLUTE IMMATURE GRANULOCYTES 0.02 10^3/uL (0.00-0.10); ADD DIFF? NO; ADD MORPH? NO; ADD SCAN? NO; ATYPICAL LYMPHOCYTE FLAG 40 (0-99); FRAGMENT RBC FLAG 20 (0-99); HEMATOCRIT 36.3 % (38.0-47.0); HEMOGLOBIN 12.2 g/dL (12.6-16.3); LEFT SHIFT FLG 0 (0-99); LIPEMIA HEMOLYSIS FLAG 80 (0-99); MEAN CELL HEMOGLOBIN 32.1 pg (27.9-34.1); MEAN CELL HEMOGLOBIN CONCENTR. 33.6 g/dL (32.4-36.7); MEAN CELL VOLUME 95.5 fL (81.5-99.8); MEAN PLATELET VOLUME 12.1 fL (8.7-11.7); PLATELET CLUMPS FLAG 0 (0-99); PLATELET COUNT 164 10^3/uL (150-400); RED CELL DISTRIBUTION WIDTH 13.3 % (11.5-15.2)
[2017-07-06 04:24] LABS: ANION GAP 6 mEq/L (8-16); CALCIUM 10.6 mg/dL (8.5-10.4); CARBON DIOXIDE 24 mEq/l (22-31); CHLORIDE 107 mEq/L (97-110); GLOMERULAR FILTRATION RATE 52; GLUCOSE 109 mg/dL (70-100); SODIUM 137 mEq/L (134-144)
[2017-07-06] MEDS: LISINOPRIL 5 MG TAB PO SCH (10:05)
[2017-07-06] MEDS: ASPIRIN 81 MG CHEWABLE TAB PO SCH (10:05)
--- NOTE | 2017-07-06 11:14 | SOAPPROG ---
SOAP Progress Note Assessment/Plan: Assessment/Plan: R hand cellulitis -Cont activities as tolerated -Cont IV abx as ordered, blood cultures resulted, + strep, ID on board -Cont current pain management -Encourage ice/elevation of RUE -MRI reveals no abscess, cont conservative management w/ abx -D/c dependent on ID abx recommendations 07/06/17 11:12 Subjective: Pt states she is feeling well today, and is in good spirits. She notes no cp or sob. Also denies any f/c/n/v. She states her right hand is markedly improved, but still has some pain with movement of her digits, however, she notes this is also improved. She notes she has been working with PT. She states she is tolerating her diet and medications well. She has no additional concerns or complaints at this time. Objective: Vital Signs Temp Pulse Resp BP Pulse Ox 36.7 C 61 13 163/58 H 91 L 07/06/17 07:30 07/06/17 07:30 07/06/17 07:30 07/06/17 10:05 07/06/17 07:30 Laboratory Results 07/06/17 03:23 07/06/17 03:23 07/05/17 07/06/17 07/07/17 05:59 05:59 05:59 Intake Total 750 500 Balance 750 500 PT 14.7 SEC (12.0-15.0) 07/03/17 09:20 INR 1.13 (0.83-1.16) 07/03/17 09:20 Pt seen up in chair. She is pleasant and cooperative with exam, VSS, NAD, non toxic in appearance. Exam of the R hand reveals dorsal swelling and erythema, mild, much improved since last exam. This extends distally into the digits, and proximally to the wrist. Forearm compartments are supple. Cap refill is 2 sec in the finger pulps. Pt is slightly apprehensive to flex and extend her digits, but is able to perform light ROM, somewhat limited by swelling. Exam of the bilateral calves reveals NTTP posteriorly, no palpable vascular cords, neg Vince's bilat. DNVI BLE. ICD10 Worksheet Patient Problems: Problems Problem Status Onset Elevated troponin Acute Right hand pain Acute Urinary tract infection Acute
[2017-07-06] MEDS ORDERED: LISINOPRIL 5 MG TAB PO SCH (11:24)
--- NOTE | 2017-07-06 12:41 | PCMIDPN ---
Assessment/Plan: 1. Right hand cellulitis/tenosynovitis with concomitant bacteremia: Repeat blood cultures are so far negative. If they remain negative tomorrow, will need PICC line inserted and spoke to patient at length about this today. She agrees. Continue Ceftriaxone as is. Will need approximately another 10 days of therapy after 1st negative blood culture, stop date tentatively July 15. The patient is despondent about having to go to a long-term facility and wants to get out as soon as possible! Subjective: MRI done yesterday is without evidence of abscess. Patient in good spirits, talking with her close friend. Her hand is markedly improved today, with barely visible erythema, and markedly improved swelling. Objective: Ceftriaxone 2 g IV daily day 3 T-max 37.5degrees Vital Signs Temp Pulse Resp BP Pulse Ox 36.7 C 63 14 120/56 L 91 L 07/06/17 11:32 07/06/17 11:32 07/06/17 11:32 07/06/17 11:32 07/06/17 11:32 Laboratory Results 07/06/17 03:23 07/06/17 03:23 07/05/17 07/06/17 07/07/17 05:59 05:59 05:59 Intake Total 750 500 Balance 750 500 C-Reactive Protein 141.2 mg/L (<10.0) H 07/05/17 03:18 July 05 blood cultures so far negative July 03 blood culture with micrococcus and another gram-positive cocci in clusters that the micro lab feels is coagulase-negative Staph Blood culture another set done July 03 is growing strep mitis and strep salivarius/oralis - Physical Exam General Appearance: no apparent distress, obese EENT: No thrush Extremities: other (Right hand with markedly improved swelling, and pinkish erythema; no longer beet red. Significant improvement. Starting to be able to make a fist. Small puncture wound visible dorsum of the hand between 3rd and 4th digits without drainage.) ICD10 Worksheet Patient Problems: Problems Problem Status Onset Elevated troponin Acute Right hand pain Acute Urinary tract infection Acute
--- NOTE | 2017-07-06 14:13 | HOSPPROG ---
Hospitalist Progress Note Assessment/Plan: 87 yo female with right hand cellulitis and possible tenosynovitis -Hand appears clinically improving -MRI hand c/w no abscess -BCX: Strep Pneumo + Gram + clusters -CRP improving -TTE preserved LVEF, no wall abnormalities, no endocarditis -Repeat Trop ok #Right hand cellulitis, possible Tenosynovitis #Strep Bacteremia #ISABELLA, resolved with IVF #Dehydration, resolved #HTN, not medicated at home #Acute Encephalopathy, resolved #Indeterminate troponin, no chest pain, possibly demand ischemia, latest troponin ok #Acute Cystitis #Weakness and deconditioning Plan: -cont inpatient -Appreciated Hand Surgery's help, no surgical interventions planned at this time. -Cont Rocephin, PICC ordered -ID following. Vanco stopped -she has responded well to Lisinopril 5mg daily. Cont with current regimen -Her HR did not tolerate Metoprolol as it caused Bradycardia -Will need SNF -PT/OT -DNR D/W IR and nurse in detail Subjective: BP elevated this morning, but now better. Hand swelling is significantly better. NO CP or SOB Objective: Vital Signs Temp Pulse Resp BP Pulse Ox 36.7 C 63 14 120/56 L 91 L 07/06/17 11:32 07/06/17 11:32 07/06/17 11:32 07/06/17 11:32 07/06/17 11:32 Laboratory Results 07/06/17 03:23 07/06/17 03:23 07/05/17 07/06/17 07/07/17 05:59 05:59 05:59 Intake Total 750 500 Balance 750 500 PT 14.7 SEC (12.0-15.0) 07/03/17 09:20 INR 1.13 (0.83-1.16) 07/03/17 09:20 - Physical Exam Constitutional: no apparent distress Eyes: PERRL, EOMI Ears, Nose, Mouth, Throat: moist mucous membranes, hearing normal Cardiovascular: regular rate and rhythym, No JVD, No edema Respiratory: no respiratory distress, no rales or rhonchi, clear to auscultation Gastrointestinal: normoactive bowel sounds, soft, non-tender abdomen Skin: warm, other (right hand swelling is improving) Musculoskeletal: generalized weakness Neurologic: AAOx3 Psychiatric: interacting appropriately, not anxious, not encephalopathic Lymph, Heme, Immunologic: No petechiae ICD10 Worksheet Patient Problems: Problems Problem Status Onset Elevated troponin Acute Right hand pain Acute Urinary tract infection Acute
[2017-07-06] MEDS: hydrALAZINE 20 MG/ML VIAL IVP PRN (16:02)
--- NOTE | 2017-07-07 07:14 | SOAPPROG ---
SOAP Progress Note Assessment/Plan: Assessment/Plan: R hand cellulitis -Continues to look improved -Cont PT/OT, encourage hand/digit ROM, activities as tolerated -Cont IV abx per ID, blood cultures resulted, + strep -Cont current pain management -Encourage ice/elevation of RUE -MRI reveals no abscess, cont conservative management w/ abx -D/c dependent on ID abx recommendations 07/07/17 07:13 Subjective: Pt seen at bedside, awoken for exam. She states she is feeling well today, and again appears to be in good spirits. She notes no cp or sob. Also denies any f/c/n/v. She states her right hand is markedly improved, but still has some pain with movement of her digits, active and passive, however, she notes this is also improved. She notes she has been working with PT/OT. I have encouraged her to continue this. She states she is tolerating her diet and medications well. She has no additional concerns or complaints at this time. Objective: Vital Signs Temp Pulse Resp BP Pulse Ox 36.4 C 63 18 181/81 H 90 L 07/07/17 04:00 07/07/17 04:00 07/07/17 04:00 07/07/17 04:00 07/07/17 04:00 Laboratory Results 07/06/17 03:23 07/06/17 03:23 07/06/17 07/07/17 07/08/17 05:59 05:59 05:59 Intake Total 500 650 Balance 500 650 PT 14.7 SEC (12.0-15.0) 07/03/17 09:20 INR 1.13 (0.83-1.16) 07/03/17 09:20 Pt seen at bedside, awoken for exam. She is pleasant and cooperative with exam , VSS, NAD, non toxic in appearance. Exam of the R hand reveals dorsal swelling and erythema, mild, much improved since last exam. This extends distally into the digits, and proximally to the wrist, again improved since yesterday's exam. Forearm compartments are supple. Cap refill is 2 sec in the finger pulps. Pt is slightly apprehensive to flex and extend her digits, but is able to perform light ROM, somewhat limited by swelling. Passive ROM assessment elicits pain with flexion. Exam of the bilateral calves reveals NTTP posteriorly, no palpable vascular cords, neg Vince's bilat. DNVI BLE. ICD10 Worksheet Patient Problems: Problems Problem Status Onset Elevated troponin Acute Right hand pain Acute Urinary tract infection Acute
[2017-07-07] MEDS ORDERED: ALTEPLASE 2 MG VIAL IVP PRN (09:45)
--- NOTE | 2017-07-07 09:49 | PDIAF ---
- Diagnosis Diagnosis: Right hand infection, streptococcal bacteremia Code Status: Do Not Resuscitate - Medication Management Discharge Medications: Medications to Continue on Transfer Aspirin [Aspirin 81mg (*)] 81 mg PO DAILY 07/03/17 [Last Taken 07/02/17] Cholecalciferol Vit D3 [Vitamin D3 (*)] 2,000 units PO EVERY OTHER DAY 07/03/17 [Last Taken 06/29/17] traMADol [Ultram 50 mg (*)] 50 mg PO Q6H PRN 07/03/17 [Last Taken 07/02/17] [employer] Antibiotics: Ceftriaxone 1 g IV q24 [facility] Antibiotic Stop Date: 07/15/17 Discharge Medications: Refer to the Discharge Home Medication list for PRN reason. PICC Care - Routine: Yes - Labs/Radiology CBC w/diff Date: 07/10/17 CMP Date: 07/10/17 Call or Fax Lab and Imaging Results to: Dr. Lacy, - Follow Up Care Current Providers and Referrals: Patient,NotPresent [Unknown] - As per Instructions Zachary Lacy MD [Medical Doctor] - 07/15/17 11:00 am
--- NOTE | 2017-07-07 09:52 | PCMIDPN ---
Assessment/Plan: Assessment/Plan: * Right hand infection status post puncture wound: Clinically improving with ceftriaxone. Still with some limitation in range of motion of digits. Will place PICC line with anticipated need for ongoing ceftriaxone. Follow-up in my office on 07/15/2017. * Bacteremia: 1 set of cultures with streptococcal species which may be related to hand infection given that patient wiped area with Kleenex. Micrococcus likely represents contamination. Plan 10 days of ceftriaxone post negative blood cultures with anticipated stop date 07/15/2017. Plan of care discussed with patient, nursing staff, and Dr. Goodrich. 07/07/17 09:49 Subjective: Patient with some residual right hand pain and decrease in range of motion although improved. Objective: Vital Signs Temp Pulse Resp BP Pulse Ox 37.0 C 59 L 18 178/74 H 91 L 07/07/17 07:17 07/07/17 07:17 07/07/17 07:17 07/07/17 07:17 07/07/17 07:17 Laboratory Results 07/06/17 03:23 07/06/17 03:23 07/06/17 07/07/17 07/08/17 05:59 05:59 05:59 Intake Total 500 650 Balance 500 650 C-Reactive Protein 141.2 mg/L (<10.0) H 07/05/17 03:18 Ceftriaxone (stop date 07/15/2017) Blood cultures x2 07/05/2017 no growth - Physical Exam General Appearance: alert, no apparent distress EENT: No thrush, No conjunctival petechiae Cardiac/Chest: regular rate, rhythm, systolic murmur (2/6 throughout) Extremities: inflammation (Right hand with mild edema on the dorsal aspect with faint erythema, warmth and tenderness; digits remain edematous with decreased flexion; no pain with range of motion of wrist) Abdomen: non-tender, No distended Skin: No embolic lesions ICD10 Worksheet Patient Problems: Problems Problem Status Onset Elevated troponin Acute Right hand pain Acute Urinary tract infection Acute
[2017-07-07] MEDS: CHOLECALCIFEROL VIT D3 1,000 UNITS TAB PO SCH (10:41)
[2017-07-07] MEDS: traMADol 50 MG TAB PO PRN (10:41)
[2017-07-07] MEDS: ASPIRIN 81 MG CHEWABLE TAB PO SCH (10:41)
[2017-07-07] MEDS ORDERED: LISINOPRIL 5 MG TAB PO SCH (11:24)
[2017-07-07 13:25] VITALS: PULSE 47
[2017-07-07] MEDS ORDERED: LISINOPRIL 10 MG TAB PO ONE (15:15)
--- NOTE | 2017-07-07 15:16 | PDIAF ---
- Diagnosis Diagnosis: Right hand infection, streptococcal bacteremia Code Status: Do Not Resuscitate - Medication Management Discharge Medications: Medications to Continue on Transfer Aspirin [Aspirin 81mg (*)] 81 mg PO DAILY 07/03/17 [Last Taken 07/02/17] Cholecalciferol Vit D3 [Vitamin D3 (*)] 2,000 units PO EVERY OTHER DAY 07/03/17 [Last Taken 06/29/17] traMADol [Ultram 50 mg (*)] 50 mg PO Q6H PRN 07/03/17 [Last Taken 07/02/17] Lisinopril [Zestril 20 mg (*)] 20 mg PO DAILY tab 07/07/17 [Last Taken Unknown] cefTRIAXone 1 GM/DEXTROSE [Rocephin 1 gm (Premix)] 1 gm IV DAILY bag 07/07/17 [ Last Taken Unknown] Mcfp Antibiotics: Ceftriaxone 1 g IV q24 Mcfp Antibiotic Stop Date: 07/15/17 Discharge Medications: Refer to the Discharge Home Medication list for PRN reason. PICC Care - Routine: Yes - Orders Services needed: Registered Nurse, Physical Therapy, Occupational Therapy Diet Recommendation: no restrictions on diet Diet Texture: Regular Texture Diet - Labs/Radiology CBC w/diff Date: 07/10/17 CMP Date: 07/10/17 Call or Fax Lab and Imaging Results to: Dr. Lacy, - Follow Up Care Current Providers and Referrals: Zachary Lacy MD [Medical Doctor] - 07/15/17 11:00 am Patient,NotPresent [Unknown] - As per Instructions
[2017-07-07 16:36] VITALS: BP 162/69; RESP 16; TEMP 97.4; O2SAT 93
[2017-07-08] MEDS ORDERED: LISINOPRIL 20 MG TAB PO SCH (09:00)
--- NOTE | 2017-07-08 11:51 | GDS ---
[f rep st] DISCHARGE SUMMARY DISCHARGE DIAGNOSES: Include: 1. Right hand cellulitis. 2. Tenosynovitis. 3. Strep bacteremia. 4. Acute kidney injury. 5. Dehydration. 6. Elevated blood pressure. 7. Acute encephalopathy secondary to acute illness. 8. Weakness and deconditioning. 9. Acute cystitis. HISTORY OF PRESENT ILLNESS: This is an 87-year-old female, who presents on 07/03/2017 with complaint s of malaise and fatigue. For details of the patient's initial presentation, please see the history a nd physical dated 07/03/2017. CONSULTATIVE SERVICES: 1. Orthopedic surgery, Dr. Montanez. 2. Infectious Disease. PROCEDURES: On 07/05/2017 the patient underwent MRI of the right upper extremity that showed dorsal cellulitis and tenosynovitis of the hand without abscess or osteo. HOSPITAL COURSE: Issues: 1. Acute right hand cellulitis/tenosynovitis. The patient was initiated on IV antibiotics. Was evalu ated by orthopedic surgery, who felt the patient was safe to be treated medically without surgical in tervention. The patient on the day of disposition has improved edema and erythema of the hand with im proved range of motion of the thumb and 2nd digit. Patient will need ongoing aggressive adaptive physical education specialist apy for mobilization of her fingers and long-term IV antibiotics. 2. Strep bacteremia. The patient will be discharged on IV ceftriaxone. She will continue this treatm ent tentatively through 07/15/2017. She is to be seen by Infectious Disease prior to this anticipated disposition date for ultimate decisions related to the length of treatment. 3. Hypertension. This is not a treated diagnosis at home. Patient had CHINEDU inhibitor, lisinopril up t itrated to 20 mg prior to disposition. MEDICATIONS AT THE TIME OF TRANSFER: Please reference med rec printed on 07/07/2017. FOLLOWUP APPOINTMENTS: Include with Infectious Disease prior to 07/15/2017. PENDING STUDIES AT THE TIME OF THIS DICTATION: Include blood cultures drawn 07/05/2017, which are pr eliminary no growth to date. I spent greater than 30 minutes in the planning and coordination of this discharge. /[id number]/MODL
== END 2017-07-07 16:57 | DRG 602 ==
LOC: EDUNIT# → F2W 15:05 → OBSVTOIN 07-04 13:08
PROVIDERS: ADMIT Family Medicine; ATTEND Family Medicine
PROC: 02HV33Z Insertion of Infusion Device into Superior Vena Cava, Percutaneous Approach (ICD-10-PCS; principal; 2017-07-07)
DX: L03.113 Cellulitis of right upper limb (principal); G93.49 Other encephalopathy; N17.9 Acute kidney failure, unspecified; N30.00 Acute cystitis without hematuria; M65.9 Synovitis and tenosynovitis, unspecified; A49.1 Streptococcal infection, unspecified site; E86.0 Dehydration; Z66 Do not resuscitate; I10 Essential (primary) hypertension; M81.0 Age-related osteoporosis without current pathological fracture
CPT/HCPCS: 97110-GO; 97110-GP; 97116-GP; 97140-GO; 97161-GP; 97165-GO; 97530-GO; 97530-GP; 97535-GO; A9585; C1751; G0378; G8978-GP-CJ; G8979-GP-CI; G8987-GO-CK; G8988-GO-CI; J0360; J0696; J3370

== ENCOUNTER 2017-10-25 15:24 | Observation (INO) | payer OTHER ==
--- NOTE | 2017-10-25 15:30 | EDPHY ---
H & P Time Seen by Provider: 10/25/17 15:27 HPI/ROS: HPI CHIEF COMPLAINT: Chest pain, fast heart rate HISTORY OF PRESENT ILLNESS: Patient is a 87-year-old female she presents emergency room by private vehicle for chest pain and fast heart rate. Patient was in [place] with her significant other they were eating brunch she developed a discomfort in the center of her chest and fast heart rate. She felt uncomfortable. The decided to leave the restaurant and walking back to the car she got very lightheaded she can feel heart racing. Developed worsening chest discomfort and then went away. Decided come the emergency room for evaluation. Upon arrival she states she does not have chest pain However was noted upon arrival that she goes into SVT at times. She she denies any shortness of breath, denies recent weakness. Past Medical History: Hypertension, acute kidney injury, hand cellulitis, cystitis Past Surgical History: No recent surgery Social History: Denies drugs alcohol tobacco. Family History: Noncontributory ROS REVIEW OF SYSTEMS: A comprehensive 10 point review of systems is otherwise negative aside from elements mentioned in the history of present illness. Exam Constitutional appears well nontoxic triage nursing summary reviewed, vital signs reviewed, awake/alert. Eyes normal conjunctivae and sclera, EOMI, PERRLA. HENT normal inspection, atraumatic, moist mucus membranes, no epistaxis, neck supple/ no meningismus, no raccoon eyes. Respiratory clear to auscultation bilaterally, normal breath sounds, no respiratory distress, no wheezing. Cardiovascular no murmur rate normal, regular rhythm, no murmur, no edema, distal pulses normal. Gastrointestinal soft, non-tender, no rebound, no guarding, normal bowel sounds, no distension, no pulsatile mass. Genitourinary no CVA tenderness. Musculoskeletal no midline vertebral tenderness, full range of motion, no calf swelling, no tenderness of extremities, no meningismus, good pulses, neurovascularly intact. Skin pink, warm, & dry, no rash, skin atraumatic. Neurologic awake, alert and oriented x 3, AAOx3, moves all 4 extremities equally, motor intact, sensory intact, CN II-XII intact, normal cerebellar, normal vision, normal speech. Psychiatric normal mood/affect. Heme/Lymph/Immune no lymphadenopathy. Differential diagnosis includes but is not limited to: ACS, atypical chest pain , pneumothorax, pneumonia, pulmonary embolism, aortic dissection, congestive heart failure, tumor, musculoskeletal pain, esophageal pain, GERD, peptic ulcer disease, pancreatitis Medical Decision Making: Plan for this patient IV establishment blood draw, EKG , chest x-ray, basic blood work, troponin, rule out acute coronary syndrome full residential monitor Re-evaluation: EKG interpretation by me on record in [employer] system. Impression time of EKG 1531, sinus rhythm rate of [address] elevation no ST depression. Repeat EKG during tachycardia: Time of EKG 1534, heart rate 136, junctional tachycardia he appears to be SVT narrow complex. ED x-ray chest one view cardiomegaly present. No focal pneumonia visualized. Patient noted to have a positive D-dimer, will proceed with CT angiogram of the chest given her age, positive D-dimer chest pain shortness of breath. 174: Patient resting comfortably no acute distress. Back from CT. CT angio results is pending at this time. No chest pain at this time. Plan will be for admission the hospital service for chest pain and tachycardia. 175: Spoke with Dr. Goldman the hospitalist service agrees to admit the patient. Reason for admission chest pain, SVT. CT angiogram of the chest shows no evidence of pulmonary embolism. Cardiomegaly present. Please see full dictation details of the CT report by Radiology. Source: Patient - Personal History Tetanus Vaccine Date: 1986 - Medical/Surgical History Hx Asthma: No Hx Chronic Respiratory Disease: No Hx Diabetes: Yes Hx Cardiac Disease: No Hx Renal Disease: No Hx Cirrhosis: No Hx Alcoholism: No Hx HIV/AIDS: No Hx Splenectomy or Spleen Trauma: No Other PMH: ARTHRITIS,HTN, MACULAR DEGENERATION-L EYE, R HAND INFECTION 07/03/2017 - Social History Smoking Status: Never smoked Constitutional: Initial Vital Signs Temperature (C) 36.6 C 10/25/17 15:27 Heart Rate 142 H 10/25/17 15:27 Respiratory Rate 20 10/25/17 15:27 Blood Pressure 150/99 H 10/25/17 15:27 O2 Sat (%) 92 10/25/17 15:27 O2 Delivery Mode Room Air Allergies/Adverse Reactions: Sulfa (Sulfonamide Antibiotics) Allergy (Unknown, Verified 06/27/17 20:02) metformin Allergy (Verified 10/25/17 16:44) Dizziness morphine Allergy (Verified 07/03/17 11:11) Hallucinations Home Medications: Medication Instructions Recorded Aspirin [Aspirin 81mg (*)] 81 mg PO DAILY 07/03/17 Cholecalciferol Vit D3 [Vitamin D3 2,000 units PO EVERY OTHER DAY 07/03/17 (*)] Carboxymethylcellulose Sodium 1 drop EACHEYE PRN PRN 10/25/17 [Refresh Tears] Enalapril Maleate [Vasotec 2.5 MG 2.5 mg PO DAILY 10/25/17 (*)] Omeprazole 40 mg PO DAILY 10/25/17 amLODIPine BESYLATE [Norvasc 2.5 2.5 mg PO DAILY #30 tab 10/26/17 mg (*)] Medical Decision Making - Data Points Laboratory Results: Laboratory Results 10/25/17 15:35 10/25/17 15:35 Medications Given: Discontinued Medications Amlodipine Besylate (Norvasc) 2.5 mg PO DAILY WILDA Stop: 04/24/18 13:29 Last Admin: 10/26/17 13:55 Dose: 2.5 mg Aspirin (Aspirin) 81 mg PO DAILY WILDA Stop: 04/24/18 08:59 Last Admin: 10/26/17 07:46 Dose: 81 mg Enalapril Maleate (Vasotec) 2.5 mg PO DAILY WILDA Stop: 04/24/18 08:59 Last Admin: 10/26/17 07:46 Dose: 2.5 mg Sodium Chloride (Ns) 1,000 mls @ 0 mls/hr IV ONCE ONE PRN Reason: Wide Open Stop: 10/25/17 15:41 Last Admin: 10/25/17 15:41 Dose: 1,000 mls Metoprolol Tartrate (Lopressor) 6.25 mg PO BID WILDA Stop: 04/23/18 20:59 Last Admin: 10/26/17 07:46 Dose: 6.25 mg Pantoprazole Sodium (Protonix) 40 mg PO DAILY WILDA Stop: 04/24/18 08:59 Last Admin: 10/26/17 07:46 Dose: 40 mg Departure - Departure Disposition: [facility] Inpatient Acute Clinical Impression: Tachycardia, SVT (supraventricular tachycardia) Chest pain Qualifiers: Chest pain type: unspecified Qualified Code(s): R07.9 - Chest pain, unspecified Condition: Fair
--- NOTE | 2017-10-25 15:39 | CPEKG ---
Heart Rate: 136 RR Interval: 441 QRSD Interval: 80 QT Interval: 308 QTC Interval: 464 QRS [place]: -21 T Wave [place]: 71 EKG Severity - ABNORMAL ECG - EKG Impression: JUNCTIONAL TACHYCARDIA EKG Impression: ABERRANT COMPLEX, POSSIBLY SUPRAVENTRICULAR EKG Impression: BORDERLINE LEFT AXIS DEVIATION EKG Impression: ST DEPRESSION, PROBABLY RATE RELATED Electronically Signed By: Duane Bautista 25-Oct-2017 20:48:12
[2017-10-25] MEDS ORDERED: NS 1,000 ML IV ONE (15:40)
--- NOTE | 2017-10-25 15:40 | CPEKG ---
Heart Rate: 69 RR Interval: 870 P-R Interval: 168 QRSD Interval: 92 QT Interval: 348 QTC Interval: 373 P [place]: 39 QRS [place]: -30 T Wave [place]: 84 EKG Severity - ABNORMAL ECG - EKG Impression: SINUS RHYTHM EKG Impression: ATRIAL PREMATURE COMPLEX EKG Impression: LEFT AXIS DEVIATION EKG Impression: LVH WITH SECONDARY REPOLARIZATION ABNORMALITY Electronically Signed By: Duane Bautista 25-Oct-2017 20:48:12
[2017-10-25 15:41] LABS: PLATELET COUNT 186 10^3/uL (150-400)
[2017-10-25 15:51] LABS: INR 1.02 (0.83-1.16); PROTIME(PATIENT) 13.6 SEC (12.0-15.0)
[2017-10-25 15:53] LABS: CREATINE KINASE 75 IU/L (0-156)
--- NOTE | 2017-10-25 16:46 | ASMTCMCOM ---
CM Note CM Note Notes: Pt presented to the Emergency Department with chest pain today. Pt to be admitted for further evaluation and treatment. Pt was recently hospitalized at [facility] for cellulitis (06/2017) and was discharged to [facility]. Pt lives independently with her partner/friend, Dmitriy. Discharge needs remain unclear at this time. CM will cont to follow. Date Signed: 10/25/2017 04:45 PM Electronically Signed By:Mana Holt RN
[2017-10-25] MEDS ORDERED: IOPAMIDOL (ISOVUE 370) 100 ML BTL IV ONE (16:53)
[2017-10-25] MEDS ORDERED: ONDANSETRON 4 MG/2 ML VIAL IVP PRN (18:56)
[2017-10-25] MEDS ORDERED: ACETAMINOPHEN 325 MG TAB PO PRN (18:56)
[2017-10-25] MEDS ORDERED: ONDANSETRON DISINTEGRATING 4 MG TAB PO PRN (18:56)
[2017-10-25] MEDS ORDERED: CARBOXYMETHYLCELLULOSE 1% 0.4 ML DROPERETTE EACHEYE PRN (19:00)
--- NOTE | 2017-10-25 19:37 | GHP ---
[f rep st] HISTORY AND PHYSICAL DATE OF ADMISSION: 10/25/2017 HISTORY OF PRESENT ILLNESS: The patient is an 87-year-old female with a history of hypertension, who presents with chest pain. She was having brun in [place]. She was feeling well. All of a sudden, she did not do well. When further characterizing chest pain, she waves her hand in a fluttering way in front of her chest. It sounds like it did not radiate to her arm or her jaw. She is apparently s upposed to see a commercial credit specialist for a stress test for upcoming reasons, but it is not clear why and the n she also when I speak with her, says perhaps she is not due for a stress test because of her age. She is not having heart failure symptoms. She does not have exertional angina. She is not having fe laith, chills. Not having cough or sputum. In the emergency department, she was found to be in an SVT that resolved with vagal maneuvers. It re curred a couple times and resolved with deep breath. She said she did not have the recurrent chest p ain when in the emergency department. REVIEW OF SYSTEMS: Complete 10-point review of systems conducted negative except as noted in the HPI . PAST MEDICAL HISTORY: 1. Hypertension. 2. Reflux. ALLERGIES: Sulfa, metformin, morphine. HOME MEDICATIONS: Aspirin, Refresh Tears, vitamin D3, enalapril, and omeprazole. SOCIAL HISTORY: No tobacco. Rare alcohol. Originally from [facility]. Lives in [place]. FAMILY HISTORY: Parents . PHYSICAL EXAMINATION: VITAL SIGNS: Temp 36.6. Blood pressure 150/99. Pulse 142, now 60s, 142 was her SVT. Breathing 20 times a minute. 92% on room air. GENERAL: No acute distress. HEENT: Scler ae anicteric. Oropharynx clear. Mucous membranes moist. NECK: Supple without lymphadenopathy or J VD. LUNGS: Clear to auscultation bilaterally. HEART: S1, S2, not tachycardic. No murmur. ABDOME N: Soft, nontender, nondistended. LOWER EXTREMITIES: No edema. Calves nontender. SKIN: Without rash. NEUROLOGIC: Nonfocal. LABORATORY DATA: CBC is normal. Coags normal. D-dimer is elevated. Sodium 142, potassium 4.2, chl oride 110, bicarb 23, BUN 31, creatinine 1.1. These numbers are her base. These kidney numbers are baseline. Glucose 141. Calcium is 11. Troponin less than 0.012. LFTs normal. BNP is 1000. Regar ding the BNP, there is no prior for comparison. DIAGNOSTIC STUDIES: EKG interpreted by me shows sinus at 69 with normal axis and intervals. No ST o r T-wave changes. Subsequent EKG demonstrated an SVT at 136 with normal axis and intervals. There i s some diffuse ST depressions throughout the limb leads and lateral precordial leads during that time . Chest x-ray interpreted by me shows no acute cardiopulmonary disease. CTA shows no pulmonary embo lism. I discussed the case with . ASSESSMENT/PLAN: An 87-year-old female presents with chest pain and supraventricular tachycardia. 1. Chest pain. I think it is reasonably attributed to the supraventricular tachycardia. The pain c ompletely resolved. She has no exertional symptoms. Patient does not appear particularly interested in further risk stratification with a stress test. 2. To that end, we will cycle troponins and follow her on telemetry. I have not ordered a stress te st. 3. Supraventricular tachycardia. This is apparently a new finding, and I suspect it is the force be hind her symptoms that led to this admission. I will perform an echocardiogram and start her on meto prolol 6.25 b.i.d., and follow her on telemetry. I have not consulted Cardiology, but it may be reas onable to reach out to them on the morning of October 26. 4. Elevated creatinine. The patient has chronic kidney disease that is stable. 5. Hypertension. She is on enalapril. We have added metoprolol. We will follow. 6. Prophylaxis. SCDs. This is an observation admission. DISPOSITION: Observation. /[id number]/MODL
[2017-10-25] MEDS: METOPROLOL TARTRATE 25 MG TAB PO SCH (20:53)
[2017-10-26] MEDS: METOPROLOL TARTRATE 25 MG TAB PO SCH (07:46)
[2017-10-26] MEDS ORDERED: PANTOPRAZOLE SODIUM 40 MG TAB PO SCH (09:00)
[2017-10-26] MEDS ORDERED: ASPIRIN 81 MG CHEWABLE TAB PO SCH (09:00)
[2017-10-26] MEDS ORDERED: ENALAPRIL MALEATE 2.5 MG TAB PO SCH (09:00)
--- NOTE | 2017-10-26 12:23 | ASMTCMCOM ---
CM Note CM Note Notes: 10/26/2017 Case Management Note Met pt this morning, SANTOS signed. Pt lives with her son Roni and has a good friend Dmitriy who helps take care of her. She is ambulating without difficulty in her room. She grocery shops with assistance from her son. Pt had a 20 day stay at [facility] in 06/2017. She was set up with [facility] and PT for the month of July 2017. Case Management d/c poc: anticipating independent with follow up as directed. Case Management available if needs change. Date Signed: 10/26/2017 12:22 PM Electronically Signed By:Merlene Francois RN
--- NOTE | 2017-10-26 14:03 | ASDISCHSUM ---
Discharge Information Plan Status:Home with No Needs Medically Cleared to Leave:10/26/2017 Discharge Date:10/26/2017 CM D/C Disposition:Home, Routine, Self-Care ADT D/C Disposition:Home, Routine, Self-Care Projected Discharge Date:10/26/2017 Transportation at D/C: Discharge Delay Reason: Follow-Up Date:10/26/2017 Discharge Slot: Final Diagnosis: Placement Information Patient Contact Information Contact Name:OREN Relationship:Friend Address:[address] Work Phone: City:[employer] [facility] Phone: State/Zip Code:[place] [address] Email: Financial Information Financial Class:Medicare Primary Plan Desc:MEDICARE OUTPATIENT Primary Plan Number:[id number] Secondary Plan Desc:NELL [employer] Secondary Plan Number:[id number] Assessment Information LACE LACE Length of stay for Answers: 1 day current admission Acuity / Level of Answers: No Care: Did the patient have an inpatient admission? Comorbidities - select Answers: Mild liver or renal all that apply disease Other Notes: Cellulitis, HTN, cystit is # of Emergency department Answers: 3-4 visits in the last 6 months Score: 7 Date Signed: 10/26/2017 02:00 PM Electronically Signed By:Merlene Francois RN [facility] CM Progress Note CM Note CM Note Notes: Pt presented to the Emergency Department with chest pain today. Pt to be admitted for further evaluation and treatment. Pt was recently hospitalized at [facility] for cellulitis (06/2017) and was discharged to [facility]. Pt lives independently with her partner/friend, Dmitriy. Discharge needs remain unclear at this time. CM will cont to follow. Date Signed: 10/25/2017 04:45 PM Electronically Signed By:Mana Holt RN [facility] CM Progress Note CM Note CM Note Notes: 10/26/2017 Case Management Note Met pt this morning, SANTOS signed. Pt lives with her son Roni and has a good friend Dmitriy who helps take care of her. She is ambulating without difficulty in her room. She grocery shops with assistance from her son. Pt had a 20 day stay at [facility] in 06/2017. She was set up with [facility] and PT for the month of July 2017. Case Management d/c poc: anticipating independent with follow up as directed. Case Management available if needs change. Date Signed: 10/26/2017 12:22 PM Electronically Signed By:Merlene Francois RN Case Management Discharge Plan Note Case Management Discharge Discharge Order Complete? Answers: Yes Patient to Obtain Answers: Independently Medications Discharge Comments Notes: 10/26/2017 Case Management Note See previous case management note. Pt to d/c independent with follow up as directed. Date Signed: 10/26/2017 02:01 PM Electronically Signed By:Merlene Francois RN Intervention Information Intervention Type:*GRAHAM-Signed Date of Service:10/26/2017 10:46 AM Patient Type:Observation Staff Member:RIN Francois, Merlene Hours: Discipline: Severity: Comment:
[2017-10-26 15:30] VITALS: BP 185/64
--- NOTE | 2017-10-26 16:59 | GDS ---
[f rep st] DISCHARGE SUMMARY ALL DIAGNOSES: 1. Atrioventricular carmen reentry tachycardia. 2. Chronic kidney disease. 3. Chest pain. 4. Hypertension. 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 This resolved with vagal maneuvers. She was started on metoprolol. H owever, she became bradycardic with this, with pulses in the 40s. She was also quite hypertensive. She is on enalapril as an outpatient. I discussed this with Dr. Guerrero who reviewed her EKGs. He cammy mmends discharging her with instructions on performing vagal maneuvers, no additional beta blockers g iven her bradycardia, and follow up with him in 2 weeks. He will discuss options at that time, altho betoh, given her age, she is not very interested in considering an ablation. For her chest pain, she h ad troponins negative x3. Suspect that this was due to the AVNRT. She is also not very interested i n ischemic eval, as she would not want a cardiac catheterization at this point. I have started her o n an additional 2.5 mg of amlodipine for her hypertension. She will take this in addition to enalapr il. FOLLOWUP: 1. Dr. Guerrero for followup of her AVNRT. She has been given his information. I have given him her in formation as well. 2. Dr. Ireland for ongoing management of her hypertension. I have started her on amlodipine 2.5 mg d aily, in addition to enalapril 2.5 mg. 3. I have discussed this her POA who is comfortable with this plan. /[id number]/MODL
[2017-10-27] MEDS ORDERED: CHOLECALCIFEROL VIT D3 1,000 UNITS TAB PO SCH (09:00)
--- NOTE | 2017-10-27 09:25 | ECHO ---
[email or web address] [address] [address] Main: [phone] Fax: Transthoracic Echocardiogram Name: MERYL ACUNA MR#: [id number] Study Date: 10/26/2017 Study Time: 11:11 AM Date of : 1930 Age: 87 year(s) Height: 154.9 cm (61 in.) Weight: 61.24 kg (135 lb.) BSA: 1.6 m2 Gender: Female Examination: Echo Indication: CP Image Quality: Contrast: Requested by: Art Goldman BP: 172 mmHg/104 mmHg Heart Rate: Rhythm: Normal sinus rhythm Indication: CP Procedure Staff Plastic Surgery Manager: Keny Steven RDCS Reading Physician: Leighann Cochran MD Requesting Provider: Conclusions: Normal size left ventricle. No LV hypertrophy. Normal global systolic LV function. EF is 63 %. No regional wall motion abnormality. Diastolic LV function normal for age. Normal size right ventricle. Normal RV function. Trivial to mild mitral regurgitation. There is mild to moderate aortic valve calcification. The AV Vmax is 2.1 m/s with a Mean PG of 11 mmHg.. No significant change compared with 06/2017 no significant change Measurements: Chambers Valvular Assessment AV/MV Valvular Assessment TV/PV Normal Normal Normal Name Value Range Name Value Range Name Value Range Ao Dana (MM): 3.1 cm (2.2 cm-3.7 AV Vmax: 2.17 m/s (1 m/s-1.7 PV Vmax: 0.83 m/s (0.6 m/s-0.9 cm) m/s) m/s) IVSd (2D): 0.9 cm (0.6 cm-1.1 AV maxP mmHg ( - ) PV PGmax: 3 mmHg ( - ) cm) AV meanP mmHg ( - ) LVDd (2D): 4.4 cm (3.9 cm-5.3 THOMAS (VTI): 1.0 cm ( - ) cm) MV E Vmax: 0.72 m/s ( - ) LVDs (2D): 2.9 cm (2.1 cm-4 MV A Vmax: 0.73 m/s ( - ) cm) MV E/A: 0.99 ( - ) LVPWd (2D): 1.0 cm ( - ) LVOTd 1.9 cm 1.9 cm mm LVEF (2D): 63 (>=54 %) Continued Measurements: Patient: MERYL ACUNA Study Date: 10/26/2017 Page 1 of 2 11:11 AM Chambers Valvular Assessment AV/MV Name Value Name Value LADs Lon.6 cm MV E' Septal: 0.06 m/s LA Area: 15.0 cm2 MV E/E' Septal: 12.00 LA Volume: 38 ml MV E/E' Lateral: 19.80 LA Volume Index: 23.8 ml/m2 Findings: Left Ventricle: Normal size left ventricle. No LV hypertrophy. Normal global systolic LV function. EF is 63 %. No regional wall motion abnormality. Diastolic LV function normal for age. Right Ventricle: Normal size right ventricle. Normal RV function. Left Atrium: The left atrium is normal in size. Right Atrium: The right atrium is normal in size. Mitral Valve: Mild mitral valve leaflet calcification is present. Trivial to mild mitral regurgitation. Aortic Valve: No aortic valve stenosis is present. There is mild to moderate aortic valve calcification. The AV Vmax is 2.1 m/s with a Mean PG of 11 mmHg.. Tricuspid Valve: The tricuspid valve appears normal. There is no tricuspid valve regurgitation. Pulmonic Valve: The pulmonic valve is normal in appearance and function. Trivial to mild pulmonic valve regurgitation. Aorta: The aorta is normal. Pericardium: No pericardial effusion. (No Signature Object) Patient: MERYL ACUNA Study Date: 10/26/2017 Page 2 of 2 11:11 AM [id number]
== END 2017-10-26 16:21 | disposition home or self-care (01) ==
LOC: F2W 18:35
PROVIDERS: ADMIT Internal Medicine; ATTEND Student in an Organized Health Care Education/Training Program
DX: I47.1 Supraventricular tachycardia (principal); N18.9 Chronic kidney disease, unspecified; R07.89 Other chest pain; I12.9 Hypertensive chronic kidney disease with stage 1 through stage 4 chronic kidney disease, or unspecified chronic kidney disease; H35.30 Unspecified macular degeneration; Z88.2 Allergy status to sulfonamides
CPT/HCPCS: 71045; 71275; 93005; 93306; 97166; G0378; G8987; G8988; G8989; Q9967